=== PATIENT | female | born 1945 | race Caucasian/White ===

== ENCOUNTER → 2018-05-03 11:16 | Outpatient (CLI) | payer MEDICARE, OTHER, SELFPAY ==
--- NOTE | 2018-05-03 11:26 | DI.CT.S_ITS ---
PROCEDURE: CT CHEST WO CON INDICATIONS: surviellance, chest nodule TECHNIQUE: Noncontrast 2.0-2.5 mm thick sections acquired from the pulmonary apices to the posterior costophrenic angles. 7 mm thick coronal and sagittal MIP reformats were then acquired. A low radiation dose technique was utilized. COMPARISON: [facility], CT, THORAX WITHOUT CONTRAST, 04/24/2017, 8:47. [facility], CT, THORAX WITHOUT CONTRAST, 11/28/2016, 14:08. FINDINGS: Image quality: Diagnostic, given the low radiation dose technique. Lungs and pleura: 5-6 mm in diameter nodule in the right middle lobe is stable in size and contour compared to prior examinations. A small, 1-2 mm in diameter calcified granulomas in the right upper lobe, right lower lobe and right middle lobe are stable compared to prior exams. No new lung nodules are identified. No pleural effusions. No pleural-based masses. Central airways are patent and of normal caliber. No pneumothorax. Mediastinum: Heart size is normal. Atherosclerotic calcifications are noted in the aorta, great vessels and the coronary vasculature.No pericardial effusion. No mediastinal adenopathy by size criteria. Thoracic aorta and central pulmonary arteries are normal in size. Esophagus is normal in caliber. No hiatal hernia. Bones and chest wall: Postsurgical changes compatible with left mastectomy are noted. No suspicious bony lesions. Spine degenerative disc disease and facet arthropathy. No vertebral body compression fractures. No axillary or supraclavicular adenopathy by size criteria. Thyroid gland is within normal limits. Abdomen: Visualized upper abdomen solid organs and bowel loops appear normal in the absence of contrast. IMPRESSION: 1. Stable examination compared to 11/28/2016 and 05/04/17. 2. 5-6 mm right middle lobe nodule is stable. Based on criteria outlined below, no additional surveillance imaging is warranted. Fleischner Society criteria for SOLID lung nodule followup. Nodule size (mm)Low-risk patientHigh-risk patient<6 (single or multiple)No routine followup.Optional CT at 12 months. 6-8 (single or multiple)CT at 6-12 months, then optional CT at 18-24 mo.CT at 6-12 months, then CT at 18-24 months. >8 (single)CT at 3 months, PET-CT, or biopsy. Same as for low-risk pts. >8 (multiple)CT at 3-6 months, then optional CT at 18-24 mo.CT at 3-6 months, then CT at 18-24 months. Recommendations do not apply to lung cancer screening, patients with immunosuppression, or patients with known primary cancer. Dictated by: Abril Ledbetter MD, PhD on 05/03/2018 at 14:29 Approved by: Abril Ledbetter MD, PhD on 05/03/2018 at 14:42
[2018-05-03 12:18] LABS: Add Manual Diff / Slide Review NO; Basophils Percent Auto 0.3 % (0-2); Hematocrit 39.6 % (36-46); Hemoglobin 13.4 g/dL (12.0-16.0); Lymphocytes Percent Auto 17.7 % (25-40); Mean Corpuscular HGB Conc 33.7 % (30-36); Mean Corpuscular Hemoglobin 30.2 PG (26-34); Mean Corpuscular Volume 89.6 fL (80-100); Neutrophils Absolute Auto 5200 /uL (3000-5900); Platelet Count 206 X10^3/uL (150-400); Red Blood Cell Count 4.42 X10^6/uL (4.0-5.2); Red Cell Distribution Width 12.9 % (11.6-14.8); White Blood Cell Count 7.1 X10^3/uL (4.5-11.0)
[2018-05-03 12:40] LABS: Alanine Aminotransferase 28 IU/L (9-52); Albumin 4.3 g/dL (3.5-5.0); Albumin Globulin Ratio 1.5 (1.0-2.8); Alkaline Phosphatase 69 U/L (38-126); Aspartate Aminotransferase 28 IU/L (14-36); BUN Creatinine Ratio 26.3 (6-22); Bilirubin Total 0.4 mg/dL (0.2-1.3); Blood Urea Nitrogen 21 mg/dL (7-17); Calcium 9.6 mg/dL (8.4-10.2); Carbon Dioxide 30 mmol/L (22-32); Chloride 102 mmol/L (98-107); Estimated Glomerular Filt Rate > 60.0 mL/min (>60); Globulin 2.8 g/dL (1.7-4.1); Glucose 87 mg/dL (80-110); HEMOLYSIS < 15 (0-50); Potassium 4.3 mmol/L (3.4-5.1); Sodium 142 mmol/L (137-145); Total Protein 7.1 g/dL (6.3-8.2)
== END ==
PROVIDERS: Family Provider Family Medicine; PCP Family Medicine; Visit Provider Nurse Practitioner Gerontology
DX: R91.1 Solitary pulmonary nodule (principal); Z85.3 Personal history of malignant neoplasm of breast
CPT/HCPCS: 36415; 71250; 80053; 85025

== ENCOUNTER 2018-05-05 14:51 | Oncology outpatient (ONC) | payer MEDICARE, OTHER, SELFPAY ==
[2018-05-05 15:11] VITALS: BP 137/83; PULSE 80; RESP 18; TEMP 36.6; O2SAT 98
--- NOTE | 2018-05-05 15:34 | ONC.PN ---
PN -Subjective Interval history: Diagnosis: Right-sided breast cancer, Tx N3 Previous treatment: 1. Mastectomy in 1999 2. Adjuvant chemotherapy with Adriamycin and Cytoxan followed by Taxol 3. Chest wall radiation 4. Arimidex for 15 years stopping in September 2014. Interval history: The patient is a 72-year-old woman who is seen today for follow-up of a distant history of breast cancer. She reports that she has been feeling quite well. She has no specific complaints today. She denies any new aches or pains. She has not noted any adenopathy. She has not noted any changes on the chest wall or in the opposite breast. No shortness of breath or cough. No GI complaints. She denies any other changes in her health. Her past medical history is otherwise notable for glaucoma and osteoporosis. Her medications include alendronate be appropriate on multivitamin and paroxetine. Social history she is . She is retired teacher. She does not smoke. She is active in her confucianism. Home Medications and Allergies Home Medications Medication Instructions Recorded Confirmed Type multivitamin [Multiple Vitamins] 1 tab PO #0 02/12/16 01/13/18 History oxymetazoline [Afrin 1 spray INTRANASAL #0 02/12/16 01/13/18 History (oxymetazoline)] bupropion HCl XL 300 mg 24 hr 300 mg PO QDAY #90 tab 01/13/18 Rx tablet, extended release alendronate 70 mg tablet 70 mg PO QWEEK #12 tab 03/23/18 Rx paroxetine 30 mg tablet 60 mg PO QDAY #180 tab 04/07/18 Rx Allergies Allergy/AdvReac Type Severity Reaction Status Date / Time simvastatin [SIMVASTATIN] Allergy Severe SEVERE Verified 01/13/18 09:06 MYALGIAS fluoxetine [FLUOXETINE] Allergy Intermediate TURNED RED Verified 01/13/18 09:06 A BEET Exam - Constitutional positive no acute distress, positive average body habitus - Routine HEENT Exam Head: Present: normocephalic, atraumatic Eye: Present: EOMI, PERRL. Absent: conjunctival icterus, scleral injection ENT: Present: mucous membranes moist, oropharynx clear - Routine Neck Exam Present: supple. Absent: lymphadenopathy, thyromegaly - Routine Chest/Breast/Axilla Exam Breast: Present: right mastectomy. Absent: mass Axillae: Absent: lymphadenopathy - Routine Respiratory Exam Present: Clear to auscultation bilaterally. Absent: rales, wheezes - Routine Cardiovascular Exam Present: RRR, S1, S2. Absent: murmur - Routine Abdominal Exam Present: soft, normoactive bowel sounds. Absent: tenderness, organomegaly, mass - Routine Neurological Exam Present: alert, oriented X3 - Routine Psychiatric Exam Present: normal affect, normal thought process Assessment and Plan (1) History of malignant neoplasm of breast Onset Date: 08/13/15 Problem details: A 72-year-old woman with a history of locally advanced breast cancer. She now is about 18 years out from her diagnosis with no evidence of recurrence. She is due for mammogram and will get that scheduled for her. Otherwise, she will return to clinic in 1 year for follow-up. Current visit: No Status: Chronic
--- NOTE | 2018-05-13 14:49 | PC.NURSE ---
Per Alisson's request, message left with patient to let her know that her CT of chest is stable.
== END 2018-05-06 12:00 ==
LOC: ONC 14:55
PROVIDERS: Family Provider Family Medicine; PCP Family Medicine
DX: Z08 Encounter for follow-up examination after completed treatment for malignant neoplasm (principal); Z85.3 Personal history of malignant neoplasm of breast
CPT/HCPCS: 99214

== ENCOUNTER → 2018-06-16 10:33 | Outpatient (CLI) | payer MEDICARE, OTHER, SELFPAY ==
--- NOTE | 2018-06-16 | DI.MG.S_ITS ---
UNILATERAL LEFT DIGITAL SCREENING MAMMOGRAM 3D/2D WITH CAD POST MASTECTOMY: 06/16/2018 CLINICAL: Routine screening. Personal history of right breast cancer. Post right mastectomy. Comparison is made to exams dated: 04/24/2017 mammogram, 02/20/2016 mammogram, and 12/10/2016 mammogram - [facility]. There are scattered fibroglandular elements in left breast. Current study was also evaluated with a Computer Aided Detection (CAD) system. No significant masses, calcifications, or other findings are seen in the breast. There has been no significant interval change. IMPRESSION: NEGATIVE There is no mammographic evidence of malignancy. A 1 year screening mammogram is recommended. This exam was interpreted at Station ID: [id number]. NOTE: For mammograms, a report in lay terms will be sent to the patient. Approximately 15% of breast malignancies will not be visualized mammographically. In the management of a palpable breast mass, a negative mammogram must not discourage biopsy of a clinically suspicious lesion. Electronically Signed By: Johanny bone/adán:06/16/2018 11:20:19 copy to: Sulaiman Acosta letter sent: Normal Exam ACR BI-RADS Category 1: Negative 3341F
== END ==
PROVIDERS: PCP Family Medicine
DX: Z12.31 Encounter for screening mammogram for malignant neoplasm of breast (principal); Z85.3 Personal history of malignant neoplasm of breast
CPT/HCPCS: 77063; 77065

== ENCOUNTER → 2019-05-05 13:06 | Outpatient (CLI) | payer MEDICARE, OTHER, SELFPAY ==
[2019-05-05 13:51] LABS: Add Manual Diff / Slide Review NO; Basophils Absolute Auto 0 /uL (0-100); Basophils Percent Auto 0.4 % (0-2); Eosinophils Absolute Auto 100 /uL (0-450); Hematocrit 41.4 % (36-46); Hemoglobin 13.8 g/dL (12.0-16.0); Lymphocytes Absolute Auto 1600 /uL (1100-4500); Lymphocytes Percent Auto 20.2 % (25-40); Mean Corpuscular HGB Conc 33.4 % (30-36); Mean Corpuscular Hemoglobin 30.1 PG (26-34); Mean Corpuscular Volume 90.3 fL (80-100); Monocytes Absolute Auto 600 /uL (0-900); Monocytes Percent Auto 7.1 % (3-14); Neutrophils Absolute Auto 5600 /uL (1500-7000); Neutrophils Percent Auto 71.3 % (50-75); Platelet Count 225 X10^3/uL (150-400); Red Blood Cell Count 4.59 X10^6/uL (4.0-5.2); Red Cell Distribution Width 13.1 % (11.6-14.8); White Blood Cell Count 7.8 X10^3/uL (4.5-11.0)
[2019-05-05 14:38] LABS: Vitamin D 25 Hydroxy (D3) 31.8 ng/mL (30.0-100.0)
[2019-05-05 14:46] LABS: Alanine Aminotransferase 20 IU/L (9-52); Albumin 4.5 g/dL (3.5-5.0); Albumin Globulin Ratio 1.5 (1.0-2.8); Alkaline Phosphatase 72 U/L (38-126); Aspartate Aminotransferase 29 IU/L (14-36); BUN Creatinine Ratio 28.8 (6-22); Bilirubin Total 0.5 mg/dL (0.2-1.3); Blood Urea Nitrogen 23 mg/dL (7-17); Calcium 10.3 mg/dL (8.4-10.2); Carbon Dioxide 28 mmol/L (22-32); Chloride 100 mmol/L (98-107); Estimated Glomerular Filt Rate > 60.0 mL/min (>60); Globulin 3.1 g/dL (1.7-4.1); Glucose 100 mg/dL (80-110); HEMOLYSIS < 15 (0-50); Potassium 4.7 mmol/L (3.4-5.1); Sodium 138 mmol/L (137-145); Total Protein 7.6 g/dL (6.3-8.2)
== END ==
PROVIDERS: PCP Family Medicine; Visit Provider Family Medicine
DX: M85.80 Other specified disorders of bone density and structure, unspecified site (principal); E55.9 Vitamin D deficiency, unspecified; Z79.899 Other long term (current) drug therapy
CPT/HCPCS: 36415; 80053; 82306; 85025

== ENCOUNTER → 2019-06-20 11:14 | Outpatient (CLI) | payer MEDICARE, OTHER, SELFPAY ==
--- NOTE | 2019-06-20 11:16 | DI.MG.S_ITS ---
UNILATERAL LEFT DIGITAL SCREENING MAMMOGRAM 3D/2D WITH CAD: 06/20/2019 CLINICAL: Routine screening. Personal history of right breast cancer. Comparison is made to exams dated: 06/16/2018 mammogram, 04/24/2017 mammogram, 12/10/2016 mammogram, and 02/20/2016 mammogram - [facility]. There are scattered fibroglandular elements in left breast. Current study was also evaluated with a Computer Aided Detection (CAD) system. No significant masses, calcifications, or other findings are seen in the breast. There has been no significant interval change. IMPRESSION: NEGATIVE There is no mammographic evidence of malignancy. A 1 year screening mammogram is recommended. This exam was interpreted at Station ID: [id number]. NOTE: For mammograms, a report in lay terms will be sent to the patient. Approximately 15% of breast malignancies will not be visualized mammographically. In the management of a palpable breast mass, a negative mammogram must not discourage biopsy of a clinically suspicious lesion. Electronically Signed By: Redd charles/adán:06/20/2019 15:35:24 copy to: Sulaiman Acosta letter sent: Normal Exam ACR BI-RADS Category 1: Negative 3341F
== END ==
PROVIDERS: PCP Family Medicine; Visit Provider Internal Medicine Hematology & Oncology
DX: Z12.31 Encounter for screening mammogram for malignant neoplasm of breast (principal); Z85.3 Personal history of malignant neoplasm of breast
CPT/HCPCS: 77063; 77067

== ENCOUNTER → 2019-06-21 08:46 | Outpatient (CLI) | payer MEDICARE, OTHER, SELFPAY ==
[2019-06-21 09:44] LABS: Add Manual Diff / Slide Review NO; Basophils Absolute Auto 0 /uL (0-100); Basophils Percent Auto 0.3 % (0-2); Eosinophils Absolute Auto 100 /uL (0-450); Eosinophils Percent Auto 1.2 % (2-4); Hematocrit 40.7 % (36-46); Hemoglobin 13.6 g/dL (12.0-16.0); Lymphocytes Absolute Auto 1200 /uL (1100-4500); Lymphocytes Percent Auto 22.2 % (25-40); Mean Corpuscular HGB Conc 33.4 % (30-36); Mean Corpuscular Hemoglobin 30.2 PG (26-34); Mean Corpuscular Volume 90.5 fL (80-100); Monocytes Absolute Auto 400 /uL (0-900); Monocytes Percent Auto 7.7 % (3-14); Neutrophils Absolute Auto 3900 /uL (1500-7000); Neutrophils Percent Auto 68.6 % (50-75); Platelet Count 224 X10^3/uL (150-400); Red Cell Distribution Width 13.2 % (11.6-14.8); White Blood Cell Count 5.6 X10^3/uL (4.5-11.0)
[2019-06-21 10:09] LABS: Alanine Aminotransferase 20 IU/L (<35); Albumin 4.2 g/dL (3.5-5.0); Albumin Globulin Ratio 1.4 (1.0-2.8); Alkaline Phosphatase 64 U/L (38-126); Aspartate Aminotransferase 29 IU/L (14-36); BUN Creatinine Ratio 28.8 (6-22); Bilirubin Total 0.4 mg/dL (0.2-1.3); Blood Urea Nitrogen 23 mg/dL (7-17); Calcium 9.6 mg/dL (8.4-10.2); Carbon Dioxide 31 mmol/L (22-32); Chloride 103 mmol/L (98-107); Cholesterol 237 mg/dL (140-199); Estimated Glomerular Filt Rate > 60.0 mL/min (>60); Globulin 2.9 g/dL (1.7-4.1); Glucose 95 mg/dL (80-110); HDL Cholesterol 50 mg/dL (40-60); HEMOLYSIS < 15 (0-50); LDL Cholesterol Calculated 167 mg/dL (<100); Potassium 4.5 mmol/L (3.4-5.1); Sodium 139 mmol/L (137-145); Total Protein 7.1 g/dL (6.3-8.2); Triglycerides 101 mg/dL (35-150)
== END ==
PROVIDERS: PCP Family Medicine; Visit Provider Internal Medicine Hematology & Oncology
DX: E78.00 Pure hypercholesterolemia, unspecified (principal); Z85.3 Personal history of malignant neoplasm of breast
CPT/HCPCS: 36415; 80053; 80061; 85025

== ENCOUNTER → 2020-07-19 09:59 | Outpatient (CLI) | payer MEDICARE, OTHER, SELFPAY ==
--- NOTE | 2020-07-19 10:02 | DI.MG.S_ITS ---
UNILATERAL LEFT DIGITAL SCREENING MAMMOGRAM 3D/2D WITH CAD: 07/19/2020 CLINICAL: Routine screening. Personal history of right breast cancer. Comparison is made to exams dated: 06/20/2019 mammogram, 06/16/2018 mammogram, 04/24/2017 mammogram, and 12/10/2016 mammogram - [facility]. There are scattered fibroglandular elements in left breast. Current study was also evaluated with a Computer Aided Detection (CAD) system. No significant masses, calcifications, or other findings are seen in the breast. There has been no significant interval change. IMPRESSION: NEGATIVE There is no mammographic evidence of malignancy. A 1 year screening mammogram is recommended. This exam was interpreted at Station ID: [id number]. NOTE: For mammograms, a report in lay terms will be sent to the patient. Approximately 15% of breast malignancies will not be visualized mammographically. In the management of a palpable breast mass, a negative mammogram must not discourage biopsy of a clinically suspicious lesion. Electronically Signed By: Gurjit jovel/adán:07/19/2020 11:40:11 copy to: Sulaiman Acosta letter sent: Normal Exam ACR BI-RADS Category 1: Negative 3341F
== END ==
PROVIDERS: PCP Family Medicine; Referring Provider Internal Medicine Hematology & Oncology; Visit Provider Internal Medicine Hematology & Oncology
DX: Z12.31 Encounter for screening mammogram for malignant neoplasm of breast (principal); Z85.3 Personal history of malignant neoplasm of breast
CPT/HCPCS: 77063; 77067

== ENCOUNTER → 2021-08-19 15:28 | Outpatient (CLI) | payer MEDICARE, OTHER, SELFPAY ==
--- NOTE | 2021-08-19 | DI.MG.S_ITS ---
UNILATERAL LEFT DIGITAL SCREENING MAMMOGRAM 3D/2D WITH CAD: 08/19/2021 CLINICAL: Routine screening. Breast cancer. Comparison is made to exams dated: 07/19/2020 mammogram, 06/20/2019 mammogram, and 06/16/2018 mammogram - [facility]. There are scattered fibroglandular elements in left breast. Current study was also evaluated with a Computer Aided Detection (CAD) system. There is an oval equal density focal asymmetry with an obscured and circumscribed margin in the left breast central to the nipple anterior depth. No other significant masses or calcifications are seen in the breast. IMPRESSION: INCOMPLETE: NEEDS ADDITIONAL IMAGING EVALUATION The oval equal density focal asymmetry in the left breast is indeterminate. Mediolateral and spot compression views as well as additional views with possible ultrasound are recommended. This exam was interpreted at Station ID: [id number]. NOTE: For mammograms, a report in lay terms will be sent to the patient. Approximately 15% of breast malignancies will not be visualized mammographically. In the management of a palpable breast mass, a negative mammogram must not discourage biopsy of a clinically suspicious lesion. Electronically Signed By: Tommy ayala/adán:08/20/2021 08:46:33 letter sent: Additional Imaging Needed ACR BI-RADS Category 0: Incomplete 3340F
== END ==
PROVIDERS: PCP Family Medicine; Referring Provider Family Medicine; Visit Provider Family Medicine
DX: Z12.31 Encounter for screening mammogram for malignant neoplasm of breast (principal); Z85.3 Personal history of malignant neoplasm of breast
CPT/HCPCS: 77063; 77067

== ENCOUNTER → 2021-09-12 13:47 | Outpatient (CLI) | payer MEDICARE, OTHER, SELFPAY ==
--- NOTE | 2021-09-12 | DI.MG.S_ITS ---
UNILATERAL LEFT DIGITAL DIAGNOSTIC MAMMOGRAM 3D/2D WITH ADDITIONAL VIEWS: 09/12/2021 CLINICAL: Additional evaluation requested from prior study. Comparison is made to exams dated: 08/19/2021 mammogram, 07/19/2020 mammogram, and 06/20/2019 mammogram - [facility]. There are scattered fibroglandular elements in left breast. There is a cluster of oval equal density focal asymmetries with an obscured and circumscribed margin in the left breast central to the nipple in the retroareolar region. No other significant masses or calcifications are seen in the breast. IMPRESSION: INCOMPLETE: NEEDS ADDITIONAL IMAGING EVALUATION The cluster of oval equal density focal asymmetries in the left breast is indeterminate. An ultrasound is recommended. This exam was interpreted at Station ID: [id number]. NOTE: For mammograms, a report in lay terms will be sent to the patient. Approximately 15% of breast malignancies will not be visualized mammographically. In the management of a palpable breast mass, a negative mammogram must not discourage biopsy of a clinically suspicious lesion. Electronically Signed By: Gurjit jovel/adán:09/12/2021 15:38:45 ACR BI-RADS Category 0: Incomplete 3340F
--- NOTE | 2021-09-12 13:48 | DI.US.S_ITS ---
LIMITED ULTRASOUND OF LEFT BREAST: 09/12/2021 CLINICAL: Patient returns today to evaluate a focal asymmetry in the left breast. Comparison is made to exams dated: 09/12/2021 mammogram, 08/19/2021 mammogram, 07/19/2020 mammogram, 06/20/2019 mammogram, and 06/16/2018 mammogram - [facility]. Color flow ultrasound of the left breast 6 o'clock, 11-12 o'clock, and retroareolar regions was performed. Farmer scale images of the real-time examination were reviewed. There are multiple benign dilated ducts in the left breast central to the nipple in the retroareolar region. These correlate with mammography findings. IMPRESSION: BENIGN There is no sonographic evidence of malignancy. The multiple dilated ducts in the left breast are consistent with duct ectasia and are benign. Return to annual mammogram screening schedule is recommended. This exam was interpreted at Station ID: Unknown. Electronically Signed By: Gurjit jovel/adán:09/12/2021 15:42:48 Entry: - 09/13/2021 12:10:09 letter sent: Normal Exam Ultrasound BI-RADS: 2 Benign
== END ==
PROVIDERS: PCP Family Medicine; Referring Provider Family Medicine; Visit Provider Family Medicine
DX: R92.8 Other abnormal and inconclusive findings on diagnostic imaging of breast (principal); Z85.3 Personal history of malignant neoplasm of breast; Z90.10 Acquired absence of unspecified breast and nipple
CPT/HCPCS: 76642; 77065; G0279

== ENCOUNTER → 2021-09-26 13:44 | Outpatient (CLI) | payer MEDICARE, OTHER, SELFPAY ==
--- NOTE | 2021-09-26 13:45 | DI.CT.S_ITS ---
PROCEDURE: CT CHEST WO CON INDICATIONS: lung nodules TECHNIQUE: Noncontrast 5 mm thick sections acquired from the pulmonary apices to the posterior costophrenic angles. 1 mm lung window, 5 mm thick coronal and sagittal and 7 mm axial MIP reformats were then acquired. For radiation dose reduction, the following was used: automated exposure control, adjustment of mA and/or kV according to patient size. COMPARISON: [facility], CT, THORAX WITHOUT CONTRAST, 11/28/2016, 14:08. [facility], CT, CT CHEST WO CON, 05/03/2018, 11:21. FINDINGS: Image quality: Excellent. Lungs and pleura: The lungs have centrilobular emphysematous changes. Previously described pulmonary nodule is no longer visualized. Mediastinum: Heart size is normal. No pericardial effusion. No mediastinal adenopathy by size criteria. Thoracic aorta and central pulmonary arteries are normal in size. Esophagus is normal in caliber. No hiatal hernia. Coronary arteries have atherosclerotic calcifications. Bones and chest wall: No suspicious bony lesions. No vertebral body compression fractures. No axillary or supraclavicular adenopathy by size criteria. Thyroid gland is normal. Status post right mastectomy. Abdomen: Visualized upper abdominal solid organs and bowel loops appear normal in the absence of contrast. IMPRESSION: 1. Pulmonary nodules previously described are no longer visualized. 2. Centrilobular emphysema. 3. Coronary artery disease. Dictated by: Isaiah Cali M.D. on 09/26/2021 at 16:25 Approved by: Isaiah Cali M.D. on 09/26/2021 at 16:34
== END ==
PROVIDERS: PCP Family Medicine; Referring Provider Internal Medicine Hematology & Oncology; Visit Provider Internal Medicine Hematology & Oncology
DX: R91.1 Solitary pulmonary nodule (principal); Z85.3 Personal history of malignant neoplasm of breast; J43.2 Centrilobular emphysema; I25.10 Atherosclerotic heart disease of native coronary artery without angina pectoris
CPT/HCPCS: 71250

== ENCOUNTER → 2022-02-19 08:25 | Outpatient (CLI) | payer MEDICARE, OTHER, SELFPAY ==
[2022-02-19 10:22] LABS: Cholesterol 213 mg/dL (140-199); HDL Cholesterol 54 mg/dL (40-60); LDL Cholesterol Calculated 143 mg/dL (<100); Triglycerides 79 mg/dL (35-150)
== END ==
PROVIDERS: PCP Family Medicine; Referring Provider Family Medicine; Visit Provider Family Medicine
DX: E78.00 Pure hypercholesterolemia, unspecified (principal)
CPT/HCPCS: 36415; 80061

== ENCOUNTER → 2022-05-15 11:43 | Outpatient (CLI) | payer MEDICARE, OTHER, SELFPAY ==
--- NOTE | 2022-05-15 11:47 | DI.CT.S_ITS ---
PROCEDURE: CT CHEST W CON INDICATIONS: CHEST WALL MASS/AXILLARY ADENOPATHY TECHNIQUE: After the administration of intravenous contrast, 5 mm thick sections acquired from the pulmonary apices to the posterior costophrenic angles. 1 mm axial lung, 5 mm thick coronal and sagittal reformats and 7 mm axial MIP were acquired. For radiation dose reduction, the following was used: automated exposure control, adjustment of mA and/or kV according to patient size. COMPARISON: [facility], CT, CT CHEST WO [facility], 09/26/2021, 13:48. FINDINGS: Image quality: Excellent. Lungs and pleura: Biapical scarring is seen. Scattered atelectasis in anterior aspect of bilateral lung bases also seen. Mild centrilobular emphysema is again seen. No acute air space opacities. No pleural effusions or pneumothorax. Central and peripheral airways are patent and normal in caliber. Mediastinum: Heart size is normal. No pericardial effusion. No mediastinal or hilar adenopathy by size criteria. [id number] coronary artery calcifications are again seen not significantly changed from prior studies. Thoracic aorta and central pulmonary arteries are normal in size. Esophagus is normal in caliber. No hiatal hernia. Bones and chest wall: There is prior right mastectomy. Surgical clips are seen in right axilla. No suspicious bony lesions. No vertebral body compression fractures. No axillary or supraclavicular adenopathy by size criteria. Thyroid gland is within normal limits. Abdomen: Visualized upper abdominal solid organs appear normal. Upper abdominal bowel loops are normal in caliber. IMPRESSION: 1. No discrete chest wall soft tissue mass or fluid collection is seen. Postsurgical changes from prior right mastectomy with surgical clips in right axilla. No axillary lymphadenopathy by size criteria. 2. Biapical scarring and chronic emphysematous changes in bilateral lung [place]. No focal infiltrate, pleural effusion or pneumothorax. 3. Mild atherosclerotic disease in coronary vessels and thoracic aorta. No mediastinal or hilar lymphadenopathy by size criteria. Dictated by: Phillip Funes M.D. on 05/15/2022 at 14:32 Approved by: Phillip Funes M.D. on 05/15/2022 at 16:10
== END ==
PROVIDERS: PCP Family Medicine; Referring Provider Family Medicine; Visit Provider Family Medicine
DX: R22.2 Localized swelling, mass and lump, trunk (principal); R59.0 Localized enlarged lymph nodes; I25.10 Atherosclerotic heart disease of native coronary artery without angina pectoris; I70.0 Atherosclerosis of aorta; Z85.3 Personal history of malignant neoplasm of breast
CPT/HCPCS: 71260; Q9967

== ENCOUNTER → 2022-09-11 14:56 | Outpatient (CLI) | payer MEDICARE, OTHER, SELFPAY ==
--- NOTE | 2022-09-11 14:59 | DI.MG.S_ITS ---
UNILATERAL LEFT DIGITAL SCREENING MAMMOGRAM 3D/2D WITH CAD: 09/11/2022 CLINICAL: Routine screening. Comparison is made to exams dated: 08/19/2021 mammogram, 07/19/2020 mammogram, and 06/20/2019 mammogram - [facility]. There are scattered areas of fibroglandular density in the left breast (category b / 25%-50% glandular tissue). Current study was also evaluated with a Computer Aided Detection (CAD) system. No significant masses, calcifications, or other findings are seen in the breast. There has been no significant interval change. IMPRESSION: NEGATIVE There is no mammographic evidence of malignancy. A 1 year screening mammogram is recommended. This exam was interpreted at Station ID: [id number]. NOTE: For mammograms, a report in lay terms will be sent to the patient. Approximately 15% of breast malignancies will not be visualized mammographically. In the management of a palpable breast mass, a negative mammogram must not discourage biopsy of a clinically suspicious lesion. Electronically Signed By: Gurjit jovel/adán:09/12/2022 09:47:45 letter sent: Normal Exam ACR BI-RADS Category 1: Negative 3341F
== END ==
PROVIDERS: PCP Family Medicine; Referring Provider Internal Medicine Hematology & Oncology; Visit Provider Internal Medicine Hematology & Oncology
DX: Z12.31 Encounter for screening mammogram for malignant neoplasm of breast
CPT/HCPCS: 77063; 77067

== ENCOUNTER → 2023-09-12 08:56 | Outpatient (CLI) | payer MEDICARE, OTHER, SELFPAY ==
--- NOTE | 2023-09-12 08:57 | DI.MG.S_ITS ---
UNILATERAL LEFT DIGITAL SCREENING MAMMOGRAM 3D/2D WITH CAD: 09/12/2023 CLINICAL: Routine screening. Personal history of right breast cancer. Comparison is made to exams dated: 09/11/2022 mammogram, 09/12/2021 mammogram, 08/19/2021 mammogram, and 07/19/2020 mammogram - [facility]. There are scattered areas of fibroglandular density in the left breast (category b / 25%-50% glandular tissue). Current study was also evaluated with a Computer Aided Detection (CAD) system. No significant masses, calcifications, or other findings are seen in the breast. There has been no significant interval change. IMPRESSION: NEGATIVE There is no mammographic evidence of malignancy. A 1 year screening mammogram is recommended. This exam was interpreted at Station ID: [id number]. NOTE: For mammograms, a report in lay terms will be sent to the patient. Approximately 15% of breast malignancies will not be visualized mammographically. In the management of a palpable breast mass, a negative mammogram must not discourage biopsy of a clinically suspicious lesion. Electronically Signed By: Redd charles/adán:09/14/2023 08:26:48 letter sent: Normal Exam ACR BI-RADS Category 1: Negative 3341F
== END ==
PROVIDERS: PCP Family Medicine; Referring Provider Family Medicine; Visit Provider Family Medicine
DX: Z12.31 Encounter for screening mammogram for malignant neoplasm of breast (principal); C50.919 Malignant neoplasm of unspecified site of unspecified female breast; R92.323 Mammographic fibroglandular density, bilateral breasts
CPT/HCPCS: 77063; 77067

== ENCOUNTER 2024-07-07 10:18 | Emergency (ER) | payer MEDICARE, OTHER, SELFPAY ==
[2024-07-07] VITALS (9 sets, daily range): BP systolic 119–152; BP diastolic 65–72; PULSE 64–73; RESP 12–20; TEMP 36.8; O2SAT 99–100; BMI 23.5
--- NOTE | 2024-07-07 10:31 | EKG_ITS ---
[address] [address] Test Date: 2024-07-07 Pat Name: Gissel Wheeler Department: [facility] Room: Gender: Female [employer] Teacher: IVAN : 1945 Requested By: Order Number: [id number] Reading MD: Doug Lee Measurements Intervals [place] Rate: 72 P: 47 IA: 156 QRS: -15 QRSD: 78 T: 33 QT: 388 QTc: 424 Interpretive Statements Normal sinus rhythm Septal infarct , age undetermined Electronically Signed On 07-07-2024 14:50:34 PST by Doug Lee
--- NOTE | 2024-07-07 10:53 | ED.GENADULT ---
HPI - General Adult General Chief complaint: Syncope Stated complaint: Syncope Time Seen by Provider: 07/07/24 10:20 Source: patient, family and EMS Mode of arrival: EMS Limitations: no limitations History of Present Illness HPI narrative: Patient is an 78-year-old female. She states that this morning she was making some breakfast. As she was standing in the kitchen she stated that she started become fairly dizzy. She went over and sat at the table. She tried to put her head between her legs which did not improve her symptoms. At the time she did not have any chest pain or shortness of breath or headache. She did have some palpitations earlier today. States she got up to go get some water from the refrigerator. States the next thing that she knows that she would drop the water and she was on the ground vomiting. Currently patient states she feels much better. She has passed out in the past but that was years ago. She was not on anticoagulation. Did not hit her head. No extremity injuries. Related Data Home Medications Medication Instructions Recorded Confirmed multivitamin (Multiple Vitamins 1 tab PO DAILY ##0 02/12/16 09/18/22 tablet) sertraline 100 mg tablet (Zoloft) 100 mg PO DAILY 09/19/21 09/18/22 Previous Rx's Medication Instructions Recorded bupropion HCl 300 mg 24 hr tablet, 300 mg PO QDAY #90 tabs 01/04/19 extended release Allergies Allergy/AdvReac Type Severity Reaction Status Date / Time simvastatin [SIMVASTATIN] Allergy Severe SEVERE Verified 01/13/18 09:06 MYALGIAS fluoxetine [FLUOXETINE] Allergy Intermediate TURNED RED Verified 01/13/18 09:06 A BEET Review of Systems Review of Systems ROS Unobtainable: All systems reviewed & are unremarkable except as noted in HPI and below Patient History Medical History Memory loss Anemia (1999) Anxiety (1984) Skin cancer (~2014) Osteoporosis (Unknown) Acne (1956) Depression (1984) Allergic rhinitis (Unknown) Asthma (Unknown) Fractures (1953) Osteopenia (Unknown) Chickenpox (1950) Mumps (1950) Measles (1950) Cataracts, bilateral (~1999) Glaucoma (~1999) Abnormal menstruation (~1989) Colon polyps (2003) Breast cancer (1999) Obsessive-compulsive disorder (07/01/16) Osteoporosis (03/06/16) History of malignant neoplasm of breast (08/13/15) Glaucoma (08/13/15) Depression (08/13/15) Anxiety (08/13/15) Surgical History (Updated 05/05/18 @ 15:37 by Wilfredo Caba MD) History of bilateral salpingo-oophorectomy (BSO) Status post partial mastectomy Status post hysterectomy Family History Brother Age: 75 Brain cancer Child Age: 54 Bipolar 1 disorder Child Age: 48 Bipolar 1 disorder Father Heart disease Grandfather Heart disease Mother Alzheimer's disease Grandfather Stroke Grandmother Stroke Social History Smoking Status: Never smoker Smoking Status: Never smoker Exam Initial Vital Signs Initial Vital Signs: Vital Signs Temperature 98.3 F 07/07/24 10:23 Pulse Rate 71 07/07/24 10:23 Respiratory Rate 17 07/07/24 10:23 Blood Pressure 129/65 07/07/24 10:23 Pulse Oximetry 100 07/07/24 10:23 Oxygen Delivery Method Room Air 07/07/24 10:23 Const General: cooperative, comfortable and No ill appearing HENMT Head: normal to inspection and normocephalic Resp Effort & Inspection: normal respiratory effort Auscultation: clear to auscultation bilaterally Cardio Rate: regular rate Rhythm: regular rhythm GI Inspection: normal to inspection and non-distended Skin General: no rashes or lesions noted Neuro General: patient alert, patient awake, patient oriented x3 and moves all extremities Speech: speech normal Extrem General: normal to inspection and capillary refill normal Course Orders Ordered: ED Orders 07/07/24 10:21 EKG-12 Lead Stat 07/07/24 10:52 Complete Blood Count AUTO DIFF Stat Comprehensive Metabolic Panel Stat Lipase Stat Vital Signs Vital signs: Vital Signs - 8 hr 07/07/24 10:23 07/07/24 10:27 07/07/24 10:28 Temperature 98.3 F Pulse Rate 71 72 Respiratory Rate 17 20 Blood Pressure 129/65 129/65 Pulse Oximetry 100 100 Oxygen Delivery Method Room Air Room Air 07/07/24 10:30 07/07/24 10:30 07/07/24 11:39 Temperature Pulse Rate 71 Respiratory Rate 18 Blood Pressure 136/65 Pulse Oximetry 100 Oxygen Delivery Method Medical Decision Making Lab Data Lab results reviewed: Yes I reviewed the patient's lab results. 07/07/24 10:52 07/07/24 10:52 Labs: Lab Results 07/07/24 Range/Units 10:52 WBC 9.7 (4.5-11.0) X10^3/uL RBC 4.67 (4.0-5.2) X10^6/uL Hgb 14.1 (12.0-16.0) g/dL Hct 42.5 (36-46) % MCV 91.0 (80-100) fL MCH 30.2 (26-34) PG MCHC 33.2 (30-36) % RDW 13.3 (11.6-14.8) % Plt Count 220 (150-400) X10^3/uL Neut % (Auto) 81.7 H (50-75) % Lymph % (Auto) 11.5 L (25-40) % Johnston % (Auto) 6.2 (3-14) % Eos % (Auto) 0.4 L (2-4) % Baso % (Auto) 0.2 (0-2) % Neut # (Auto) 7900 H (3531-8208) /uL Lymph # (Auto) 1100 (5990-6096) /uL Johnston # (Auto) 600 (0-900) /uL Eos # (Auto) 0 (0-450) /uL Baso # (Auto) 0 (0-100) /uL Sodium 139 (137-145) mmol/L Potassium 4.9 (3.4-5.1) mmol/L Chloride 105 (98-107) mmol/L Carbon Dioxide 30 (22-32) mmol/L BUN 25 H (7-17) mg/dL Creatinine 0.83 (0.52-1.04) mg/dL Estimated GFR > 60 (>60) mL/min BUN/Creatinine Ratio 30.1 H (6-22) Glucose 129 H (80-110) mg/dL Calcium 9.5 (8.4-10.2) mg/dL Total Bilirubin 0.5 (0.2-1.3) mg/dL AST 32 (14-36) IU/L ALT 23 (<35) IU/L Alkaline Phosphatase 80 (38-126) U/L Total Protein 6.9 (6.3-8.2) g/dL Albumin 4.2 (3.5-5.0) g/dL Globulin 2.7 (1.7-4.1) g/dL Albumin/Globulin Ratio 1.6 (1.0-2.8) Lipase 22 L (23-300) U/L ECG Data Attestation: I personally reviewed and interpreted this ECG as follows: Interpretation: Sinus rhythm Normal axis Normal QRS Normal QTC No ST T wave changes MDM Narrative Medical decision making narrative: Patient was asymptomatic. Ambulated around the department without discomfort or dizziness. Is tolerating oral intake. Low suspicion for TIA/CVA. Low suspicion for ACS. This does not sound like seizure. Not hypoglycemic. Potentially had a transient arrhythmia and I discussed this with the patient. She has a follow-up with her primary doctor tomorrow. Advised that she talk with her primary doctor about the events for today. She was given return precautions. She expressed understanding and agreement. Discharge Plan Departure Patient Disposition: Home Clinical Impression: Syncope Instructions: DI for Syncope in Adults (Fainting) Activity Restrictions/Additional Instructions: Continue to take all of your medications as directed. Keep your scheduled appointment with your primary doctor tomorrow. Return emergency department for new or worsening symptoms. Prescriptions: No Action multivitamin [Multiple Vitamins] 1 EACH tablet 1 tab PO DAILY Qty: 0 bupropion HCl 300 mg tablet extended release 24 hr 300 mg PO QDAY Qty: 90 1RF sertraline [Zoloft] 100 mg Tablet 100 mg PO DAILY Referrals: Sulaiman Acosta MD [Primary Care Provider] - Stand Alone Forms: Patient Portal/API/Survey
[2024-07-07 11:02] LABS: Add Manual Diff / Slide Review NO; Basophils Absolute Auto 0 /uL (0-100); Basophils Percent Auto 0.2 % (0-2); Eosinophils Absolute Auto 0 /uL (0-450); Eosinophils Percent Auto 0.4 % (2-4); Hematocrit 42.5 % (36-46); Hemoglobin 14.1 g/dL (12.0-16.0); Lymphocytes Absolute Auto 1100 /uL (1100-4500); Lymphocytes Percent Auto 11.5 % (25-40); Mean Corpuscular HGB Conc 33.2 % (30-36); Mean Corpuscular Hemoglobin 30.2 PG (26-34); Monocytes Absolute Auto 600 /uL (0-900); Monocytes Percent Auto 6.2 % (3-14); Neutrophils Absolute Auto 7900 /uL (1500-7000); Neutrophils Percent Auto 81.7 % (50-75); Platelet Count 220 X10^3/uL (150-400); Red Blood Cell Count 4.67 X10^6/uL (4.0-5.2); Red Cell Distribution Width 13.3 % (11.6-14.8); White Blood Cell Count 9.7 X10^3/uL (4.5-11.0)
[2024-07-07 11:11] LABS: Alanine Aminotransferase 23 IU/L (<35); Albumin 4.2 g/dL (3.5-5.0); Albumin Globulin Ratio 1.6 (1.0-2.8); Alkaline Phosphatase 80 U/L (38-126); Aspartate Aminotransferase 32 IU/L (14-36); BUN Creatinine Ratio 30.1 (6-22); Bilirubin Total 0.5 mg/dL (0.2-1.3); Blood Urea Nitrogen 25 mg/dL (7-17); Calcium 9.5 mg/dL (8.4-10.2); Carbon Dioxide 30 mmol/L (22-32); Chloride 105 mmol/L (98-107); Estimated Glomerular Filt Rate > 60 mL/min (>60); Globulin 2.7 g/dL (1.7-4.1); Glucose 129 mg/dL (80-110); HEMOLYSIS 19 (0-50); Lipase 22 U/L (23-300); Potassium 4.9 mmol/L (3.4-5.1); Sodium 139 mmol/L (137-145); Total Protein 6.9 g/dL (6.3-8.2)
== END 2024-07-07 12:11 | disposition home or self-care (01) ==
PROVIDERS: Emergency Provider Emergency Medicine; PCP Family Medicine
DX: R55 Syncope and collapse (principal)
CPT/HCPCS: 36415; 80053; 83690; 85025; 93005; 99283; 99284

== ENCOUNTER → 2024-12-28 08:04 | Outpatient (CLI) | payer MEDICARE, OTHER, SELFPAY ==
--- NOTE | 2024-12-28 08:07 | DI.MRI.S_ITS ---
PROCEDURE: MR HEAD/BRAIN WO CON INDICATIONS: Cognitive impariment TECHNIQUE: Non-contrast axial T1 spin echo, axial T2 fast spin echo, sagittal and axial FLAIR, coronal T2 fast spin echo, axial gradient echo, axial diffusion and ADC through the brain. COMPARISON: None. FINDINGS: Image quality: Excellent. CSF spaces: Ventricles appear symmetric in size and shape. Basal cisterns are patent. No extra-axial fluid collections. Brain: No intracranial bleeds or mass effects. There is cerebral volume loss for age. There are periventricular and deep white matter chronic small vessel ischemic changes. Brainstem appears normal. Diffusion-weighted images show no acute infarct. No chronic ischemic insults. Normal intravascular flow voids are present. Skull and face: Calvarial bone marrow is normal in signal. Orbits are normal. Sinuses: Small right mastoid effusion, the sinuses are clear. IMPRESSION: Mild generalized age-appropriate cerebral atrophy with mild chronic microvascular ischemic changes. Dictated by: Kassidy Huggins M.D. on 12/28/2024 at 11:52 Approved by: Kassidy Huggins M.D. on 12/28/2024 at 12:12
== END ==
LOC: MRI 08:05
PROVIDERS: PCP Family Medicine; Referring Provider Family Medicine; Visit Provider Family Medicine
DX: G31.1 Senile degeneration of brain, not elsewhere classified (principal); R41.89 Other symptoms and signs involving cognitive functions and awareness; R89.8 Other abnormal findings in specimens from other organs, systems and tissues; R26.89 Other abnormalities of gait and mobility; R41.3 Other amnesia
CPT/HCPCS: 70551